=== PATIENT | female | born 1995 | race Caucasian/White ===

== ENCOUNTER 2019-12-13 12:39 | Emergency (ER) | payer BC, OTHER ==
[~2019-12-13] VITALS: Ht 175.2 cm; Wt 110.4 kg
[2019-12-13] MEDS ORDERED: LIDOCAINE 1% INJ 20 ML 20 ML VIAL ONE (12:43)
[2019-12-13 12:44] VITALS: BP 113/66
--- NOTE | 2019-12-13 12:54 | ED Upper Extremity ---
General Stated Complaint: FOREIGN BODY L HAND History of Present Illness Date Seen by Provider: December 13, 2019 Time Seen by Provider: 12:30 Initial Comments Patient is here with nail through the left index finger was using a nail gun and shot through good range of motion doesn't appear to be through the bone tetanus is current Onset: just prior to arrival Pain/Injury Location: left 2nd finger Modifying Factors: Worse With Movement Allergies and Home Medications Allergies Coded Allergies: amoxicillin (Verified Allergy, Unknown, 12/13/19) Patient Home Medication List Home Medication List Reviewed: Yes Review of Systems Constitutional: No chills, No fever Musculoskeletal: joint pain; No joint swelling Skin: other (foreign body left index finger) Past Tcrpqqx-Xvsqir-Sccfgr Hx Past Med/Social Hx: Reviewed Nursing Past Med/Soc Hx Patient Social History Recent Foreign Travel: No Contact w/Someone Who Travel: No Physical Exam Vital Signs Vital Signs - First Documented 12/13/19 12:44 Temp 35.9 Pulse 86 Resp 16 B/P (MAP) 113/66 (82) Pulse Ox 97 Capillary Refill : Height, Weight, BMI Height: '" Weight: lbs. oz. kg; BMI Method: General Appearance: WD/WN, mild distress Hand: Left (wire Reji through the distal phalanx of the left index finger) Neurologic/Tendon: normal sensation, normal motor functions Neurologic/Psychiatric: alert, normal mood/affect, oriented x 3 Skin: normal color, warm/dry Procedures/Interventions Progress Procedure foreign body removal distal phalanx left index finger Under Betadine antiseptic 1% lidocaine was injected into and around the nail at this point the nail was withdrawn without problem. Patient tolerated procedure well Progress/Results/Core Measures Results/Orders My Orders Orders - CHRISTY TRACY JR, MD Finger(S) (12/13/19 12:48) Lidocaine 1% Inj 20 Ml (Xylocaine 1% Inj (12/13/19 12:43) Lidocaine 1% Inj 20 Ml (Xylocaine 1% Inj (12/13/19 13:00) Vital Signs/I&O 12/13/19 12:44 Temp 35.9 Pulse 86 Resp 16 B/P (MAP) 113/66 (82) Pulse Ox 97 Progress Progress Note : Time: 13:11 Progress Note Discussed with her about the risk of infection we'll give her antibiotics today and follow depending on how she does see her PCP if any sign of infection in the finger. Departure Impression Primary Impression: Injury due to foreign body Disposition: HOME, SELF-CARE Condition: Stable Departure-Patient Inst. Referrals: CARLI BUNN MD (PCP/Family) Primary Care Physician Patient Instructions: Wound Care Scripts Cephalexin (Keflex) 500 Mg Capsule 500 MG PO QID for 5 Days, #20 CAP Prov: CHRISTY TRACY JR, MD 12/13/19 CHRISTY TRACY JR, MD December 13, 2019 12:54
[2019-12-13] MEDS ORDERED: LIDOCAINE 1% INJ 20 ML 20 ML VIAL INJ ONE (13:00)
[2019-12-13] MEDS ORDERED: CEPH-507 PO (13:13)
[2019-12-13] MEDS ORDERED: CEPHALEXIN 250 MG (KEFLEX) CAP PO ONE (13:15)
--- NOTE | 2019-12-13 13:32 | Diagnostic Imaging Report ---
INDICATION: Nail through finger. TECHNIQUE: Three views of the left hand and index finger, 01:01 p.m. CORRELATION STUDY: None FINDINGS: Approximately 5 cm in length metallic nail traverses through the distal phalanx of the index finger on all images. The nail is approximately half way through the bone. Adjacent distal interphalangeal joint appears to be maintained. The proximal middle phalanx is intact. Remaining osseous structures otherwise intact. IMPRESSION: 1. Long metallic nail coursing through the distal phalanx of the index finger. Dictated by: Dictated on workstation # [id number]
== END 2019-12-13 13:19 | disposition home or self-care (01) ==
LOC: EDUNIT# 12:39 → ER FS 12:43
DX: S61.341A Puncture wound with foreign body of left index finger with damage to nail, initial encounter (principal); Z88.0 Allergy status to penicillin; W29.4XXA Contact with nail gun, initial encounter
CPT/HCPCS: 24200; 64450; 73140

== ENCOUNTER 2021-09-19 23:37 | Emergency (ER) | payer BC ==
[~2021-09-19 23:37] MED LIST: CEPH-507 PO
--- NOTE | 2021-09-19 23:52 | ED Fever ---
History of Present Illness General Stated Complaint: FEVER History of Present Illness Date Seen by Provider: Sep 19, 2021 Time Seen by Provider: 23:47 Initial Comments 26-year-old female presents with some right-sided abdominal pain. Patient reports that she recently had an ectopic has had some bleeding and cramping. She states that pain started in her right back and is now on her right lower abdomen. She feels like she is "burning up and febrile" patient denies any nausea or vomiting. Patient reports she has had a total of 5 ectopics pregnancies. She reports she is having some other mild bleeding and cramping but this pain is different. Allergies and Home Medications Allergies Coded Allergies: amoxicillin (Verified Allergy, Unknown, 12/13/19) Patient Home Medication List Home Medication List Reviewed: Yes Cephalexin (Keflex) 500 Mg Capsule, 500 MG PO QID Prescribed by: CHRISTY TRACY on 12/13/19 1313 Review of Systems Review of Systems Constitutional: chills, fever Respiratory: No cough, No short of breath Cardiovascular: No chest pain, No palpitations Gastrointestinal: see HPI, abdominal pain; No nausea, No vomiting Genitourinary: see HPI Musculoskeletal: no symptoms reported Skin: no symptoms reported Psychiatric/Neurological: No Symptoms Reported Hematologic/Lymphatic: No Symptoms Reported Immunological/Allergic: no symptoms reported Past Jegbhdh-Htnlob-Zdijjt Hx Immunizations Up To Date Tetanus Booster (TDap): Less than 5yrs Seasonal Allergies Seasonal Allergies: No Past Medical History Surgeries: Yes Tonsillectomy Respiratory: No Cardiac: No Neurological: No Genitourinary: No Gastrointestinal: No Musculoskeletal: No Endocrine: No HEENT: No Cancer: No Psychosocial: Yes ADD/ADHD, Depression Integumentary: No Blood Disorders: No Physical Exam Vital Signs - First Documented 09/19/21 23:50 Temp 37.1 Pulse 110 Resp 18 B/P (MAP) 155/82 (106) Pulse Ox 98 O2 Delivery Room Air Capillary Refill : Height: '" Weight: lbs. oz. kg; 35.00 BMI Method: General Appearance: WD/WN, no apparent distress Neck: full range of motion, supple Respiratory: lungs clear, normal breath sounds Cardiovascular: normal peripheral pulses, regular rate, rhythm Gastrointestinal: soft, tenderness (mild rlq pain ) Neurologic/Psychiatric: alert, normal mood/affect, oriented x 3 Skin: normal color, warm/dry Focused Exam Lactate Level 2/15/22 23:50: Lactic Acid Level 0.72 Lactic Acid Level Laboratory Tests Test 09/19/21 23:50 Lactic Acid Level 0.72 MMOL/L (0.50-2.00) Progress/Results/Core Measures Suspected Sepsis SIRS Temperature: Pulse: Respiratory Rate: Laboratory Tests 09/19/21 23:50: White Blood Count 7.1 Blood Pressure / Mean: 09/19/21 23:50: Lactic Acid Level 0.72 Laboratory Tests 09/19/21 23:50: Creatinine 0.88, Platelet Count 270, Total Bilirubin 0.2 Results/Orders Lab Results Laboratory Tests Test 09/19/21 23:50 09/20/21 00:37 Range/Units White Blood Count 7.1 4.3-11.0 10^3/uL Red Blood Count 4.80 3.80-5.11 10^6/uL Hemoglobin 13.3 11.5-16.0 g/dL Hematocrit 40 35-52 % Mean Corpuscular Volume 83 80-99 fL Mean Corpuscular Hemoglobin 28 25-34 pg Mean Corpuscular Hemoglobin Concent 33 32-36 g/dL Red Cell Distribution Width 13.2 10.0-14.5 % Platelet Count 270 130-400 10^3/uL Mean Platelet Volume 9.2 9.0-12.2 fL Immature Granulocyte % (Auto) 0 % Neutrophils (%) (Auto) 73 42-75 % Lymphocytes (%) (Auto) 12 12-44 % Monocytes (%) (Auto) 14 H 0-12 % Eosinophils (%) (Auto) 0 0-10 % Basophils (%) (Auto) 0 0-10 % Neutrophils # (Auto) 5.2 1.8-7.8 10^3/uL Lymphocytes # (Auto) 0.8 L 1.0-4.0 10^3/uL Monocytes # (Auto) 1.0 0.0-1.0 10^3/uL Eosinophils # (Auto) 0.0 0.0-0.3 10^3/uL Basophils # (Auto) 0.0 0.0-0.1 10^3/uL Immature Granulocyte # (Auto) 0.0 0.0-0.1 10^3/uL Sodium Level 137 135-145 MMOL/L Potassium Level 3.9 3.6-5.0 MMOL/L Chloride Level 101 98-107 MMOL/L Carbon Dioxide Level 22 21-32 MMOL/L Anion Gap 14 5-14 MMOL/L Blood Urea Nitrogen 8 7-18 MG/DL Creatinine 0.88 0.60-1.30 MG/DL Estimat Glomerular Filtration Rate 92 BUN/Creatinine Ratio 9 Glucose Level 100 70-105 MG/DL Lactic Acid Level 0.72 0.50-2.00 MMOL/L Calcium Level 9.4 8.5-10.1 MG/DL Corrected Calcium 9.2 8.5-10.1 MG/DL Total Bilirubin 0.2 0.1-1.0 MG/DL Aspartate Amino Transf (AST/SGOT) 18 5-34 U/L Alanine Aminotransferase (ALT/SGPT) 27 0-55 U/L Alkaline Phosphatase 71 40-136 U/L C-Reactive Protein 2.88 H <0.50 MG/DL Total Protein 7.2 6.4-8.2 GM/DL Albumin 4.2 3.2-4.5 GM/DL Urine Color YELLOW Urine Clarity CLEAR Urine pH 7.0 5-9 Urine Specific [place] <=1.005 1.016-1.022 Urine Protein NEGATIVE NEGATIVE Urine Glucose (UA) NEGATIVE NEGATIVE Urine Ketones NEGATIVE NEGATIVE Urine Nitrite NEGATIVE NEGATIVE Urine Bilirubin NEGATIVE NEGATIVE Urine Urobilinogen 0.2 < = 1.0 MG/DL Urine Leukocyte Esterase NEGATIVE NEGATIVE Urine RBC (Auto) 3+ H NEGATIVE Urine RBC 10-25 H /HPF Urine WBC 0-2 /HPF Urine Squamous Epithelial Cells 0-2 /HPF Urine Crystals NONE /LPF Urine Bacteria FEW H /HPF Urine Casts NONE /LPF Urine Mucus NEGATIVE /LPF Urine Culture Indicated YES My Orders Orders - LIEBERMAN,ML L DO Cbc With Automated Diff (09/19/21 23:52) Comprehensive Metabolic Panel (09/19/21 23:52) Lactic Acid Analyzer (09/19/21 23:52) Ua Culture If Indicated (09/19/21 23:52) Crp Fs (09/19/21 23:52) Blood Culture (09/19/21 23:52) Ct Abdomen/Pelvis W (09/19/21 23:52) Ed Iv/Invasive Line Start (09/19/21 23:54) Iohexol Injection (Omnipaque 350 Mg/Ml 1 (09/20/21 00:00) Received Contrast (Hold Metformin- Contr (09/20/21 00:00) Ns (Ivpb) (Sodium Chloride 0.9% Ivpb Bag (09/20/21 00:00) Urine Culture (09/20/21 00:37) Medications Given in ED Current Medications Medications Dose Ordered Sig/Mark Route Start Time Stop Time Status Last Admin Dose Admin Iohexol 100 ml ONCE ONCE IV 09/20/21 00:00 09/20/21 00:01 DC 09/20/21 00:07 100 ML Sodium Chloride 100 ml ONCE ONCE IV 09/20/21 00:00 09/20/21 00:01 DC 09/20/21 00:07 100 ML Vital Signs/I&O 09/19/21 09/20/21 23:50 01:19 Temp 37.1 Pulse 110 98 Resp 18 18 B/P (MAP) 155/82 (106) 148/78 Pulse Ox 98 98 O2 Delivery Room Air Room Air Capillary Refill : Progress Note : Progress Note Patient labs have no significant findings. Patient with a very mild elevation of her CRP but otherwise normal. Patient has no acute findings on CT per V rad. Discussed findings with patient. She does not appear to be having any complications of her recent ectopic . Patient is stable, she is discharged home. If her symptoms continue to worsen she should return to the ER or follow-up with her primary care provider. Diagnostic Imaging Diagonstic Imaging: CT Plain Films/CT/US/NM/MRI: abdomen, pelvis Comments no acute findings Reviewed: Reviewed Night [facility] Study Departure Impression Primary Impression: Abdominal pain Qualified Codes: R10.31 - Right lower quadrant pain Disposition: 01 HOME, SELF-CARE Condition: Stable Departure-Patient Inst. Referrals: SELF,CARLI ERVIN (PCP/Family) Primary Care Physician Patient Instructions: Abdominal Pain, Adult ED Add. Discharge Instructions: Follow-up with your primary care provider if you develop fever, nausea, vomiting or return to the ER as needed for worsening symptoms LM LIEBERMAN DO Sep 19, 2021 23:51
[2021-09-19 23:57] LABS: BASOPHILS % (AUTO) 0 % (0-10); EOSINOPHILS % (AUTO) 0 % (0-10); HEMATOCRIT 40 % (35-52); HEMOGLOBIN 13.3 g/dL (11.5-16.0); LYMPHOCYTES # (AUTO) 0.8 10^3/uL (1.0-4.0); LYMPHOCYTES % (AUTO) 12 % (12-44); MEAN CORPUSCULAR HEMOGLOBIN 28 pg (25-34); MEAN CORPUSCULAR HGB CONC 33 g/dL (32-36); MEAN CORPUSCULAR VOLUME 83 fL (80-99); MEAN PLATELET VOLUME 9.2 fL (9.0-12.2); MONOCYTES % (AUTO) 14 % (0-12); NEUTROPHILS # (AUTO) 5.2 10^3/uL (1.8-7.8); NEUTROPHILS % (AUTO) 73 % (42-75); PLATELET COUNT 270 10^3/uL (130-400); WHITE BLOOD COUNT 7.1 10^3/uL (4.3-11.0)
[2021-09-20] MEDS ORDERED: IOHEXOL 350 MG/ML 150 ML (OMNIPAQUE 350) VIAL IV ONE
[2021-09-20] MEDS ORDERED: NS 100 ML (IVPB) BAG IV ONE
[2021-09-20] MEDS ORDERED: HOLD METFORMIN - RECEIVED CONTRAST 20 ML VIAL IV SCH
[2021-09-20 00:22] LABS: ALBUMIN 4.2 GM/DL (3.2-4.5); BILIRUBIN,TOTAL 0.2 MG/DL (0.1-1.0); CALCIUM 9.4 MG/DL (8.5-10.1); CREATININE SERUM 0.88 MG/DL (0.60-1.30); POTASSIUM 3.9 MMOL/L (3.6-5.0); TOTAL PROTEIN 7.2 GM/DL (6.4-8.2)
[2021-09-20 00:43] LABS: BILIRUBIN,URINE NEGATIVE (NEGATIVE); CLARITY,URINE CLEAR; COLOR,URINE YELLOW; GLUCOSE, URINE (UA) NEGATIVE (NEGATIVE); KETONES,URINE NEGATIVE (NEGATIVE); LEUKOCYTE ESTERASE ,URINE NEGATIVE (NEGATIVE); NITRITE,URINE NEGATIVE (NEGATIVE); PROTEIN,URINE NEGATIVE (NEGATIVE)
[2021-09-20 00:47] LABS: BACTERIA,URINE FEW /HPF; SQUAMOUS EPITHELIAL CELL,UR 0-2 /HPF; WBC,URINE 0-2 /HPF
[2021-09-20 01:19] VITALS: BP 148/78
--- NOTE | 2021-09-20 07:09 | Diagnostic Imaging Report ---
PROCEDURE: CT abdomen and pelvis with contrast. TECHNIQUE: Multiple contiguous axial images were obtained through the abdomen and pelvis after administration of intravenous contrast. Auto Exposure Controls were utilized during the CT exam to meet ALARA standards for radiation dose reduction. All CT scans use one or more of the following dose optimizing techniques: automated exposure control, MA and/or KvP adjustment based on patient size and exam type or iterative reconstruction. INDICATION: Patient reports ectopic . Given medication to help pass . Now right-sided abdominal pain. FINDINGS: Lung bases are clear. Good opacification aorta and abdominal vessels and organs. Liver, gallbladder and bile duct as well as the pancreas and spleen are normal. Adrenal glands are not enlarged. Kidneys are normal. Bowel gas pattern is normal. There is a cyst in the right ovary measuring 3 cm. There is no free fluid. Uterus is not enlarged. Bladder decompressed. No intra-abdominal adenopathy. IMPRESSION: 1. Simple appearing cyst in the right adnexal consistent with ovarian cyst measuring 3 cm. 2. No evidence of appendicitis or other acute findings. These findings are in agreement with the preliminary report. Dictated by: Dictated on workstation # [id number]
== END 2021-09-20 01:18 | disposition home or self-care (01) ==
LOC: EDUNIT# 23:37 → ER FS 23:40
DX: R10.31 Right lower quadrant pain (principal); Z87.59 Personal history of other complications of pregnancy, childbirth and the puerperium
CPT/HCPCS: 36415; 74177; 80053; 81000; 83605; 85025; 86141; 87040; 87088

== ENCOUNTER → 2021-12-18 | Outpatient (CLI) | payer BC | LOC: CARD 11:30 | PROVIDERS: ATTEND Internal Medicine Cardiovascular Disease | DX: I25.10 Atherosclerotic heart disease of native coronary artery without angina pectoris (principal); I49.9 Cardiac arrhythmia, unspecified; I10 Essential (primary) hypertension | CPT/HCPCS: 93225; 93226; 93306 ==

== ENCOUNTER 2022-12-09 23:32 | Emergency (ER) | payer BC ==
[~2022-12-09] VITALS: Ht 175.2 cm; Wt 124.5 kg
[2022-12-09] MEDS ORDERED: KETOROLAC 15 MG/ML VIAL IVP STA (23:43)
[2022-12-09] MEDS ORDERED: PANTOPRAZOLE 40 MG (PROTONIX) VIAL IV STA (23:43)
[2022-12-09] MEDS ORDERED: ASPIRIN 81 MG CHEW (CHILDREN'S ASA) PO ONE (23:45)
--- NOTE | 2022-12-09 23:50 | ED Chest Pain ---
General Chief Complaint: Chest Pain Stated Complaint: CHEST PAIN Source: patient, old records (reviewed [employer] Dr. Armstrong's report on echocardiogram and holter monitor from December 2021 when she had work up for chest pains) History of Present Illness Date Seen by Provider: December 09, 2022 Time Seen by Provider: 23:26 Initial Comments 27 yo female presenting with complaint of burning pain in center of chest and to the right side of her breast bone that has been constant for over 2 hours. At times she has sharp stabbing pain that makes the pain spike up from 4 out of 10 to 6 out of 10. She can not pinpoint anything that makes the pain worse or better. She denies being short of breath and initially said she was not nauseated, then said she had nausea yesterday but that she did not have the pain with the nausea. She has not tried taking anything for the pain. She was at work when the pain started. She had eaten around 7 or 8 pm and feels it was not associated with her pain. She denies fever, chills, abdominal pain, pain with urination, change in bowels. She had her last menstrual period 2 weeks ago and was normal. She denied having pain like this before. Although she has a burning pain she did not try tums or anything over the counter for pain or reflux. Timing/Duration: 1-3 hours, constant Severity/Quality: mild, burning, pressure, sharp (occasional) Location: substernal (and to right of breast bone) Radiation: no radiation Activities at Onset: none Prior CP/Workup: non-cardiac, echocardiography, other (holter monitor) ASA po CODING COMPLIANCE SPECIALIST: No NTG SL CODING COMPLIANCE SPECIALIST: No Associated Symptoms: No abdominal pain, No back pain, No diaphoresis, No dizziness, No edema, No fatigue, No fever/chills, No headache, No nausea/vomiting, No rash, No shortness of breath, No swelling/lump in chest, No syncope Allergies and Home Medications Allergies Coded Allergies: amoxicillin (Verified Allergy, Unknown, 12/13/19) Patient Home Medication List Home Medication List Reviewed: Yes Cephalexin (Keflex) 500 Mg Capsule, 500 MG PO QID Prescribed by: CHRISTY TRACY on 12/13/19 1313 Review of Systems Review of Systems Constitutional: No chills, No fever EENTM: No Symptoms Reported Respiratory: No Symptoms Reported Cardiovascular: See HPI Gastrointestinal: See HPI Genitourinary: No Symptoms Reported Musculoskeletal: no symptoms reported Skin: no symptoms reported Psychiatric/Neurological: No Symptoms Reported Past Nozvuek-Eamjiu-Xlculk Hx Immunizations Up To Date Tetanus Booster (TDap): Less than 5yrs Seasonal Allergies Seasonal Allergies: No Past Medical History Surgeries: Yes Tonsillectomy Respiratory: No Cardiac: No Neurological: No Genitourinary: No Gastrointestinal: No Musculoskeletal: No Endocrine: No HEENT: No Cancer: No Psychosocial: Yes ADD/ADHD, Depression Integumentary: No Blood Disorders: No Physical Exam Vital Signs Vital Signs - First Documented 12/09/22 23:32 Temp 37.0 Pulse 91 Resp 19 B/P (MAP) 139/86 (103) Pulse Ox 98 O2 Delivery Room Air Capillary Refill : Height, Weight, BMI Height: '" Weight: lbs. oz. kg; 35.00 BMI Method: General Appearance: No Apparent Distress, WD/WN HEENT: PERRL/EOMI, Pharynx Normal Neck: Full Range of Motion, Normal Inspection, Non Tender, Supple Respiratory: Chest Non Tender, Lungs Clear, Normal Breath Sounds, No Accessory Muscle Use, No Respiratory Distress Cardiovascular: Regular Rate, Rhythm, No Murmur, Normal Peripheral Pulses Gastrointestinal: Normal Bowel Sounds, No Pulsatile Mass, Non Tender, Soft Rectal: Deferred Extremity: Normal Capillary Refill, Normal Inspection, Normal Range of Motion, Non Tender, No Calf Tenderness, No Pedal Edema Neurologic/Psychiatric: Alert, Oriented x3 Skin: Normal Color, Warm/Dry Progress/Results/Core Measures Results/Orders Lab Results Laboratory Tests Test 12/09/22 23:36 Range/Units White Blood Count 9.8 4.3-11.0 10^3/uL Red Blood Count 5.08 3.80-5.11 10^6/uL Hemoglobin 14.0 11.5-16.0 g/dL Hematocrit 42 35-52 % Mean Corpuscular Volume 82 80-99 fL Mean Corpuscular Hemoglobin 28 25-34 pg Mean Corpuscular Hemoglobin Concent 34 32-36 g/dL Red Cell Distribution Width 12.9 10.0-14.5 % Platelet Count 320 130-400 10^3/uL Mean Platelet Volume 9.6 9.0-12.2 fL Immature Granulocyte % (Auto) 0 % Neutrophils (%) (Auto) 56 42-75 % Lymphocytes (%) (Auto) 33 12-44 % Monocytes (%) (Auto) 10 0-12 % Eosinophils (%) (Auto) 1 0-10 % Basophils (%) (Auto) 0 0-10 % Neutrophils # (Auto) 5.5 1.8-7.8 10^3/uL Lymphocytes # (Auto) 3.2 1.0-4.0 10^3/uL Monocytes # (Auto) 1.0 0.0-1.0 10^3/uL Eosinophils # (Auto) 0.1 0.0-0.3 10^3/uL Basophils # (Auto) 0.0 0.0-0.1 10^3/uL Immature Granulocyte # (Auto) 0.0 0.0-0.1 10^3/uL Prothrombin Time 12.2 12.2-14.7 SEC INR Comment 0.9 0.8-1.4 Activated Partial Thromboplast Time 28 24-35 SEC D-Dimer 0.27 0.00-0.49 UG/ML Sodium Level 139 135-145 MMOL/L Potassium Level 4.2 3.6-5.0 MMOL/L Chloride Level 106 98-107 MMOL/L Carbon Dioxide Level 22 21-32 MMOL/L Anion Gap 11 5-14 MMOL/L Blood Urea Nitrogen 14 7-18 MG/DL Creatinine 0.92 0.60-1.30 MG/DL Estimat Glomerular Filtration Rate 86 BUN/Creatinine Ratio 15 Glucose Level 106 H 70-105 MG/DL Calcium Level 9.7 8.5-10.1 MG/DL Corrected Calcium 9.7 8.5-10.1 MG/DL Magnesium Level 1.9 1.6-2.4 MG/DL Total Bilirubin 0.2 0.1-1.0 MG/DL Aspartate Amino Transf (AST/SGOT) 19 5-34 U/L Alanine Aminotransferase (ALT/SGPT) 24 0-55 U/L Alkaline Phosphatase 85 40-136 U/L Troponin I < 0.30 <0.30 NG/ML Pro-B-Type Natriuretic Peptide 85.6 <125.0 PG/ML Total Protein 6.7 6.4-8.2 GM/DL Albumin 4.0 3.2-4.5 GM/DL Lipase 31 8-78 U/L My Orders Orders - JULITA JOHNSON MD Cbc With Automated Diff (12/09/22 23:43) Magnesium (12/09/22 23:43) Chest 1 View Ap/Pa Only (12/09/22 23:43) Ekg Tracing (12/09/22 23:43) Comprehensive Metabolic Panel (12/09/22 23:43) Protime With Inr (12/09/22 23:43) Partial Thromboplastin Time (12/09/22 23:43) O2 (12/09/22 23:43) Monitor-Rhythm Ecg Trace Only (12/09/22 23:43) Aspirin Chewable Tablet (Baby Aspirin Ch (12/09/22 23:45) Ed Iv/Invasive Line Start (12/09/22 23:43) Lipase (12/09/22 23:43) Troponin I Fs (12/09/22 23:43) Probnp Fs (12/09/22 23:43) Pantoprazole Injection (Protonix Injecti (12/09/22 23:43) Ketorolac Injection (Toradol Injection) (12/09/22 23:43) Fibrin Degradation Products (12/09/22 23:43) Medications Given in ED Current Medications Medications Dose Ordered Sig/Mark Route Start Time Stop Time Status Last Admin Dose Admin Aspirin 324 mg ONCE ONCE PO 12/09/22 23:45 12/09/22 23:46 DC 12/09/22 23:53 324 MG Vital Signs/I&O 12/09/22 23:32 Temp 37.0 Pulse 91 Resp 19 B/P (MAP) 139/86 (103) Pulse Ox 98 O2 Delivery Room Air Progress Progress Note #1: Progress Note Potential diagnosis of GERD, esophagitis, peptic ulcer disease, cholecystitis, gallbladder attack, pleurisy, musculoskeletal pain, pulmonary embolism, acute coronary syndrome. Obtain electrocardiogram and place patient on cardiac awake overnight monitor. Initially her cardiac telemetry monitoring shows sinus rhythm with heart rate in the 70s. She had complained of a burning pain so will try Protonix 40 mg IV for possible gastritis. Also administer Toradol 15 mg IV for pain, aspirin 324 mg p.o. for possible acute coronary syndrome. Establish peripheral IV access and send labs for complete blood count, comprehensive metabolic profile, lipase, coags, troponin, proBNP. Obtain chest x-ray 1 view to look for acute pathology that might be contributing to her pain and symptoms. Her oxygen saturations 98 to 100% on room air and she is breathing 14-16 times a minute. She has a normal sinus rhythm heart rate without ectopy or ST elevation on the cardiac awake overnight monitor. Her electrocardiogram also shows normal sinus rhythm without ST elevation. Progress Note #2: Time: 00:45 Progress Note No acute process seen on CXR 1 view imaging on my personal interpretation and review. She had No acute abnormality on ECG to indicate ACS or cardiac ischemia. Cardiac telemetry monitoring cotninues to show sinus rhythm without ST elevation or ectopy. Complete blood count without elevation of WBC to indicate infection or low hemoglobin to indicate anemia. Comprehensive metabolic profile without acute significant abnormality and Troponin and proBNP are not elevated to indicate ACS or OR or Heart failure. Coagulation factors are not elevated to indicate coagulopathy and D Dimer not elevated at 0.27 to help rule out pulmonary embolism as cause of her symptoms. As there are multiple other potential causes of chest pain and she does not have acute risk factors to indicate ACS or life threatening condition will discharge to home and encourage her to follow up with her regular provider "Natividad" through the [facility] in [place]. Will also give number for Dr. Armstrong as she had seen him last December for chest pains and had normal Echocardiogram and no arrhythmia showing on her Holter monitor. When reviewing labs and test results she did report she had 4 tick bites a week ago but has not had a rash associated with any of them and does not feel that any of the ticks were attached for 24 hours or more. Counseled to follow up with pcp for that as well if she has further symptoms or more concerns they may do antibody testing but that can take a few weeks to show up Initial ECG Impression Date: December 09, 2022 Initial ECG Impression Time: 23:36 Initial ECG Rate: 69 Initial ECG Rhythm: Normal Sinus Initial ECG Comparisson: No Previous ECG Available Comment On my personal interpretation of her electrocardiogram she has a normal sinus rhythm with a heart rate of 69 bpm. [place] interval [address] elevation. QT interval 353 ms with a QTc interval 373 ms. She has no prior tracing immediately available for comparison. Diagnostic Imaging Diagonstic Imaging: Xray Plain Films/CT/US/NM/MRI: chest Comments On my personal interpretation and review of her 1 view chest x-ray at 2356 she has no acute infiltrate, effusion, cardiomegaly. Reviewed: Reviewed by Me Departure Impression Primary Impression: Atypical chest pain Additional Impression: Burning chest pain Disposition: HOME, SELF-CARE Condition: Stable Departure-Patient Inst. Decision time for Depature: 01:10 Referrals: CULLEN ARMSTRONG MD SELF,CARLI ERVIN (PCP/Family) Primary Care Physician Patient Instructions: Chest Pain, Adult ED, Heart Healthy Diet Add. Discharge Instructions: Your labs and tests tonight do not show signs of heart attack or heart damage or blood clots in lungs. Check back with your regular provider for continued evaluation and she might have you do additional testing or further work up as an outpatient similar to your testing with Dr. Armstrong last December. You could also call Dr. Armstrong directly since you had already had an echocardiogram and holter monitor that he had interpreted last December. All discharge instructions reviewed with patient and/or family. Voiced understanding. JULITA JOHNSON MD December 09, 2022 23:50
[2022-12-09 23:55] LABS: BASOPHILS % (AUTO) 0 % (0-10); EOSINOPHILS # (AUTO) 0.1 10^3/uL (0.0-0.3); EOSINOPHILS % (AUTO) 1 % (0-10); HEMATOCRIT 42 % (35-52); LYMPHOCYTES # (AUTO) 3.2 10^3/uL (1.0-4.0); LYMPHOCYTES % (AUTO) 33 % (12-44); MEAN CORPUSCULAR HEMOGLOBIN 28 pg (25-34); MEAN CORPUSCULAR HGB CONC 34 g/dL (32-36); MEAN CORPUSCULAR VOLUME 82 fL (80-99); MEAN PLATELET VOLUME 9.6 fL (9.0-12.2); MONOCYTES % (AUTO) 10 % (0-12); NEUTROPHILS # (AUTO) 5.5 10^3/uL (1.8-7.8); NEUTROPHILS % (AUTO) 56 % (42-75); PLATELET COUNT 320 10^3/uL (130-400); WHITE BLOOD COUNT 9.8 10^3/uL (4.3-11.0)
[2022-12-10 00:14] LABS: FIBRIN DEGRADATION PRODUCTS 0.27 UG/ML (0.00-0.49); INR 0.9 (0.8-1.4); PROTHROMBIN TIME PATIENT 12.2 SEC (12.2-14.7)
[2022-12-10 00:20] LABS: CALCIUM 9.7 MG/DL (8.5-10.1); CREATININE SERUM 0.92 MG/DL (0.60-1.30); POTASSIUM 4.2 MMOL/L (3.6-5.0)
[2022-12-10 00:21] LABS: BILIRUBIN,TOTAL 0.2 MG/DL (0.1-1.0); MAGNESIUM 1.9 MG/DL (1.6-2.4); TOTAL PROTEIN 6.7 GM/DL (6.4-8.2)
[2022-12-10 01:10] VITALS: BP 116/54
--- NOTE | 2022-12-10 07:55 | Diagnostic Imaging Report ---
CHEST 1 VIEW AP/PA ONLY INDICATION: burning chest pain. COMPARISON: None. FINDINGS: Lungs: Low lung volume. No focal consolidation. Stable pulmonary vasculature. Pleura: No pleural effusion or pneumothorax. Heart and Mediastinum: Cardiomediastinal silhouette and great vessels of the thorax are stable. Osseous Structures and Soft Tissues: No acute osseous abnormality. Normal soft tissues. IMPRESSION: No acute cardiopulmonary process. Dictated by: Dictated on workstation # [id number]
== END 2022-12-10 01:11 | disposition home or self-care (01) ==
LOC: EDUNIT# 23:32 → ER FS 23:37
DX: R07.89 Other chest pain (principal)
CPT/HCPCS: 36415; 71045; 80053; 83690; 83735; 83880; 84484; 85025; 85379; 85610; 85730; 93005; 93041